=== PATIENT | female | born 1975 | race Caucasian/White ===

== ENCOUNTER 2016-05-21 08:55 | Emergency (ER) | payer SELFPAY ==
--- NOTE | 2016-05-21 09:02 | ED.REPORT ---
HPI-General Illness Date of Service May 21, 2016 ED Provider: Dr. Amari Cervantes 41 year old female with a history of migraine headaches who presents to the ER due to dizziness (spinning sensation) and nausea since 07:15 this am. This started after bending over to wash dishes and standing up quickly. Her symptoms are worse with head movement, eye movement and walking. Improves with keeping head still. She is unable to drive or walk around house without assistance. Pt states that she has had 3 days of R ear pain and pressure. Pt denies hearing loss, headache, unilateral weakness, speech changes, visual changes and nasal congestion. Nursing Notes Stated Complaint: DIZZY/NAUSEA Nursing Notes Reviewed: Yes Allergies: Coded Allergies: codeine (Verified Allergy, Unknown, HIVES, 12/12/08) Scheduled Fluticasone Propionate (Flonase Allergy Relief) 50 Mcg/Actuation [place].susp 1-2 PUFF NASAL BID Meclizine (Bonine) 25 Mg Tab.chew 25 MG PO TID Scheduled PRN Ondansetron ODT (Zofran ODT) 4 Mg Tablet 4 MG PO Q4H PRN PRN For Nausea General Time Seen by MD: 09:02 Chief Complaint Dizziness Hx Obtained From: Patient Arrived By: Walk-in Sudden in Onset?: Yes Onset Occurred: 1 - 4 hours ago Symptom Duration: Since onset Location: : Ear right Quality: Painful Severity: Current: Moderate Associated with: Reports: Nausea, Denies: Chest pain, Fever, Headache, Shortness of breath Exacerbated by: Standing up Similar Sx Previous: No Past Medical History Past Medical History Reports: Hypertension Reports: Migraines Past Surgical History Denies Smoking History Current Every Day Smoker Social History Alcohol Use: "Social" Drug Use: THC (nightly) Other Social History: Good social support 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 Physical Exam Vital Signs Vital Signs Date Time Temp Pulse Resp B/P Pulse Ox O2 Delivery O2 Flow Rate FiO2 05/21/16 10:24 78 136/ 99 Room Air 05/21/16 09:06 36.8 99 16 136/54 78 Room Air Initial VS: Reviewed General/Constitutional: Well-developed, Well-nourished Neck: Supple, Non-tender, Full range of motion Respiratory: Breath sounds normal, Clear to auscultation, No respiratory distress Cardiovascular: Regular rate & rhythm, Heart sounds normal, Intact distal pulses Abdomen / GI: Soft, Non-tender, No guarding, No rebound, No distention Extremities: Vascular intact, Neuro intact, No swelling, No tenderness Skin: Warm, Dry, No cyanosis Psychiatric: Mood/affect normal, Behavior normal, Normal thought content Head / Eyes: Atraumatic, Normocephalic, PERRL, EOMI, No nystagmus, No scleral icterus ENT: Mucous membranes moist, Pharynx NL Fluid behind R TM. L TM normal. Neurologic: Oriented X3, Speech NL, No motor deficits, No sensory deficits, CN II - XII intact, Gait NL Re-Eval/Medical Decision Med Decision/Clinical Course Consistent with vertigo, not a stroke. Return in follow-up precautions given. Time of Eval: 10:00 Re-Evaluation/Progress Note: Discussed plan for discharge and follow up. All questions addressed. Counseled Regarding: Diagnosis, Need for follow-up, When/why to return to ED Discharge & Departure Primary Impression: Vertigo Disposition: Home Discharge Condition All VS Reviewed: Yes Condition: Stable Patient Instructions: Vertigo (ED) Additional Instructions: We believe that you have vertigo. You can take Meclizine for the dizziness. I would take all the doses today. If the symptoms persist you can take the meclizine at the onset of symptoms. I also recommend that you try the Wesley maneuvers that are on the handout provided. If you develop nausea you can take Zofran as prescribed. You can also use the nasal spray to help clear the congestion and pressure in your ear. Return to the ER for signs of stroke ( numbness/weakness on one side of the body, slurred speech and vision changes). I suggest that you do not go to work today, and return tomorrow if your symptoms have improved. Scribe Attestation Portions of this note were transcribed by Deborah Vivas. I, (Dr. Amari Cervantes ) personally performed the history, physical exam and medical decision-making; I reviewed and confirmed the accuracy of the information in the transcribed note. Signed by: Deborah Vivas. Zhang, 05/21/2016, 10:51 Amari Cervantes DO May 21, 2016 09:02 Deborah Vivas May 21, 2016 09:41
[2016-05-21 09:06] VITALS: BP 136/54; PULSE 99; RESP 16; O2SAT 78
[2016-05-21] MEDS ORDERED: Ondansetron 8 mg ODT Tablet ONE (09:18)
[2016-05-21] MEDS ORDERED: FLUT9.9S NASAL (09:51)
[2016-05-21] MEDS ORDERED: ONDA4TAB9 PO (09:51)
[2016-05-21] MEDS ORDERED: MECL-114 PO (09:51)
[2016-05-21 10:24] VITALS: BP_SYST 136; PULSE 78; O2SAT 99
== END 2016-05-21 10:24 | disposition home or self-care (01) ==
LOC: SED 08:55
DX: R42 Dizziness and giddiness (principal); I10 Essential (primary) hypertension; F17.210 Nicotine dependence, cigarettes, uncomplicated; F12.10 Cannabis abuse, uncomplicated; G47.30 Sleep apnea, unspecified; Z86.69 Personal history of other diseases of the nervous system and sense organs